=== PATIENT | female | born 1990 | race Caucasian/White ===

== ENCOUNTER 2024-04-11 09:05 | Emergency (ER) | payer BC ==
[~2024-04-11] VITALS: Ht 157.5 cm; Wt 79.4 kg
[2024-04-11 09:11] VITALS: BP_SYST 140; PULSE 73; RESP 16; TEMP 98.1; O2SAT 97
[2024-04-11] MEDS: KETOROLAC TROMETHAMINE 30 MG VIAL IM ONE (09:42)
[2024-04-11] MEDS ORDERED: TRAM50TA2 PO (10:01)
== END 2024-04-11 10:36 | disposition home or self-care (01) ==
LOC: SED 09:05
DX: K80.50 Calculus of bile duct without cholangitis or cholecystitis without obstruction (principal); Z88.1 Allergy status to other antibiotic agents; Z79.899 Other long term (current) drug therapy
CPT/HCPCS: 99283; 81025; 96372; J1885